=== PATIENT | female | born 1955 | race Caucasian/White ===

== ENCOUNTER 2018-08-29 17:27 | Emergency (ER) | payer OTHER ==
[~2018-08-29] VITALS: Ht 188 cm; Wt 108.9 kg
[2018-08-29] MEDS ORDERED: FORTAMET500 MG (17:34)
[2018-08-29] MEDS ORDERED: PAXIL20 MG (17:34)
[2018-08-29] MEDS ORDERED: TAMS0.4C (17:35)
[2018-08-29] MEDS ORDERED: LIPITOR20 MG (17:35)
[2018-08-29] MEDS ORDERED: PRILOSEC10 MG (17:35)
[2018-08-29] MEDS ORDERED: FLONASE16 GM (17:36)
== END 2018-08-29 21:04 | disposition home or self-care (01) ==
LOC: ER 17:27
DX: J32.0 Chronic maxillary sinusitis (principal)